=== PATIENT | male | born 1990 | race Caucasian/White ===

== ENCOUNTER 2016-12-02 17:47 | Emergency (ER) | payer OTHER ==
[~2016-12-02] VITALS: Ht 177.8 cm; Wt 101.7 kg
[~2016-12-02 17:47] MED LIST: 5-HTP100 MG PO; ADDERALL XR 3030 MG PO; ADDERALL30 MG PO; ANTIBIOTIC; ATIVAN0.5 MG PO; BACTRIM,SEPT1 TABLET PO; CARISOPRODOL 350 MG; CELEBREX200 MG PO; CIPRO500 MG PO; CLINDAMYCIN; CLONIDINE HCL0.2 MG PO; COLACE100 MG PO; CYCLOBENZAPRINE 10 M; Cipro PO; ENDOCET 5-3251 EACH PO; FLEXERIL10 MG PO; FOCALIN XR20 MG PO; FOCALIN10 MG PO; FOCALIN5 MG PO; GABAPENTIN300 MG PO; HYDROCODON-ACE1 EAC7; HYDROCODON-ACE1 EAC7 PO; IBUPROFEN800 MG PO; KEFLEX500 MG PO; KETOROLAC TROME10 MG PO; LMX 530 GM; MOBIC15 MG PO; MOTRIN600 MG PO; MOTRIN800 MG PO; MUCINEX D ER T1 EACH PO; NAPROSYN500 MG PO; NOHOMEMEDS; NORCO 5/3251 TABLET PO; NORCO 7.5/321 TABLET PO; PEPCID AC20 M1 PO; PERCOCET 2.51 TABLET PO; PERCOCET 5/31 TABLET PO; PERCOCET 5/325MG; PROMETHAZINE HC25 M1 PO; Roxicet,Percocet 5/3 PO; SOMA250 MG PO; SOMA350 MG PO; TESSALON PERLE100 MG PO; TRAMADOL HCL50 MG PO; TRETINOIN; TYLENOL REGULA325 MG PO; TYLENOL WITH C1 EACH PO; ULTRAM50 MG PO; VALIUM5 MG PO; VICODIN 5-3001 EACH PO; VICODIN,LORT1 TABLET PO; ZOFRAN ODT4 MG PO; ZOFRAN4 MG PO; ZOFRAN8 MG PO
[2016-12-02 18:25] LABS: HEMATOCRIT 37.7 % (38.0-50.0); MCHC 34.7 G/DL (30.0-36.0); MCV 89.1 FL (86-99); MEAN PLAT.VOLUME 9.7 uM^3 (9.0-12.4); PLATELET COUNT 192 K/uL (156-360); RBC DIS.WIDTH-CV 11.6 % (11.8-14.6); RBC DIS.WIDTH-SD 36.8 % (39-53); RED BLOOD COUNT 4.23 M/uL (4.00-5.50); WHITE BLOOD COUNT 5.6 K/uL (4.1-10.2)
[2016-12-02 18:44] LABS: CHLORIDE 103 mEq/L (99-109); POTASSIUM 4.2 mEq/L (3.7-5.4); SODIUM 138 mEq/L (136-147)
[2016-12-02 18:46] LABS: GLUCOSE 98 mg/dL (70-99)
[2016-12-02 18:47] LABS: ANION GAP 9 MEQ/L (2-14)
[2016-12-02 18:50] LABS: GFR ESTIMATE (CALCULATED) > 59 mL/min/
[2016-12-02 18:51] LABS: UREA NITROGEN (BUN) 9 mg/dL (9-23)
[2016-12-02 19:34] LABS: ADD MIUA? YES; BILIRUBIN NEGATIVE; BLOOD LARGE; COLOR YELLOW ((YELLOW)); GLUCOSE (STRIP) NEGATIVE; KETONES NEGATIVE; LEUKOCYTES NEGATIVE; NITRITE NEGATIVE; PH, URINE 7.5 (5-8); PROTEIN (STRIP) NEGATIVE; SPECIFIC GRAVITY 1.019 (1.000-1.030); UROBILINOGEN 0.2 MG/DL (0.2-1.0)
[2016-12-02 19:46] LABS: BACTERIA NONE SEEN; CASTS NONE SEEN /LPF; CRYSTALS NONE SEEN; EPITHELIAL CELLS RARE; MUCUS NONE SEEN; RED BLOOD CELLS 15-20 /HPF (0-5); UCUL ADDED? NO; WHITE BLOOD CELLS 0-5 /HPF (0-5)
[2016-12-02] MEDS ORDERED: ZOFRAN4 MG PO (21:21)
[2016-12-02] MEDS ORDERED: PERCOCET 5/31 TABLET PO (21:21)
[2016-12-02 21:36] VITALS: BP 137/82
== END 2016-12-02 21:43 | disposition home or self-care (01) ==
LOC: EME 17:47
DX: N20.0 Calculus of kidney (principal); R31.9 Hematuria, unspecified; Z87.442 Personal history of urinary calculi; Z88.6 Allergy status to analgesic agent
CPT/HCPCS: 74176; 80048; 81003; 85027; 99281; 99285; J1885; J2270; J2765; J7030

== ENCOUNTER 2016-12-23 16:59 | Emergency (ER) | payer OTHER ==
[~2016-12-23] VITALS: Ht 177.8 cm; Wt 98.0 kg
[2016-12-23 17:59] LABS: ADD MIUA? YES; BILIRUBIN NEGATIVE; BLOOD LARGE; COLOR YELLOW ((YELLOW)); GLUCOSE (STRIP) NEGATIVE; KETONES NEGATIVE; LEUKOCYTES NEGATIVE; NITRITE NEGATIVE; PROTEIN (STRIP) NEGATIVE; UROBILINOGEN 0.2 MG/DL (0.2-1.0)
[2016-12-23 18:01] LABS: HEMATOCRIT 34.9 % (38.0-50.0); MCH 30.7 PG (29.0-34.0); MCV 87.7 FL (86-99); PLATELET COUNT 155 K/uL (156-360); RBC DIS.WIDTH-CV 11.3 % (11.8-14.6); RBC DIS.WIDTH-SD 35.4 % (39-53); RED BLOOD COUNT 3.98 M/uL (4.00-5.50); WHITE BLOOD COUNT 3.5 K/uL (4.1-10.2)
[2016-12-23 18:04] LABS: CHLORIDE 108 mEq/L (99-109); POTASSIUM 4.1 mEq/L (3.7-5.4); SODIUM 140 mEq/L (136-147)
[2016-12-23 18:06] LABS: GLUCOSE 126 mg/dL (70-99)
[2016-12-23 18:07] LABS: ANION GAP 7 MEQ/L (2-14)
[2016-12-23 18:10] LABS: GFR ESTIMATE (CALCULATED) > 59 mL/min/
[2016-12-23 18:11] LABS: UREA NITROGEN (BUN) 7 mg/dL (9-23)
[2016-12-23 18:13] LABS: AMPHETAMINE NEGATIVE (500 ng/mL); BARBITURATES NEGATIVE (200 ng/mL); BENZODIAZEPINES NEGATIVE (150 ng/mL); COCAINE NEGATIVE (150 ng/mL); INTERNAL CONTROLS VALID? YES; METHADONE NEGATIVE (200 ng/mL); METHAMPHETAMINE NEGATIVE (500 ng/mL); OPIATES (MORPHINE) NEGATIVE (100 ng/mL); OXYCODONE NEGATIVE (100 ng/mL); PHENCYCLIDINE NEGATIVE (25 ng/mL); PROPOXYPHENE NEGATIVE (300 ng/mL); THC CANNABINOIDS NEGATIVE (50 ng/mL); TRICYCLIC ANTIDEPRESSANTS NEGATIVE (300 ng/mL)
[2016-12-23 18:26] LABS: BACTERIA 1+ /HPF; CASTS NONE SEEN /LPF; CRYSTALS NONE SEEN; EPITHELIAL CELLS NONE SEEN /HPF; MUCUS NONE SEEN /LPF; WHITE BLOOD CELLS NONE SEEN /HPF (0-5)
[2016-12-23] MEDS ORDERED: TORADOL10 MG PO (20:02)
[2016-12-23] MEDS ORDERED: VICODIN 5-3001 EACH PO (20:02)
[2016-12-23] MEDS ORDERED: FLOMAX0.4 MG PO (20:02)
[2016-12-23] MEDS ORDERED: NORCO 5/3251 TABLET PO (20:03)
[2016-12-23 20:20] VITALS: BP 118/74
== END 2016-12-23 20:20 | disposition home or self-care (01) ==
LOC: EME 16:59
PROVIDERS: Emergency Medicine
DX: N20.0 Calculus of kidney (principal); F90.9 Attention-deficit hyperactivity disorder, unspecified type; Z87.442 Personal history of urinary calculi
CPT/HCPCS: 74176; 80048; 81003; 85027; 99281; 99285; J1170; J1885; J2405; J3010; J7030

== ENCOUNTER 2017-02-15 13:07 | Emergency (ER) | payer OTHER ==
[~2017-02-15] VITALS: Ht 177.8 cm; Wt 97.5 kg
[~2017-02-15 13:07] MED LIST changes: +FLOMAX0.4 MG PO; +TORADOL10 MG PO
[2017-02-15 13:35] VITALS: BP 136/77
[2017-02-15] MEDS ORDERED: DOXYCYCLINE HY100 MG PO (15:57)
[2017-02-15] MEDS ORDERED: NORCO 5/3251 TABLET PO (16:01)
[2017-02-15] MEDS ORDERED: DOXYCYCLINE MO100 MG PO (16:21)
== END 2017-02-15 16:26 | disposition home or self-care (01) ==
LOC: EME 13:07
DX: L03.113 Cellulitis of right upper limb (principal); Z86.14 Personal history of Methicillin resistant Staphylococcus aureus infection
CPT/HCPCS: 99281; 99283

== ENCOUNTER 2017-02-28 18:28 | Emergency (ER) | payer OTHER ==
[~2017-02-28] VITALS: Ht 177.8 cm; Wt 97.0 kg
[~2017-02-28 18:28] MED LIST changes: +DOXYCYCLINE HY100 MG PO; +DOXYCYCLINE MO100 MG PO
[2017-02-28 19:14] LABS: HEMATOCRIT 37.1 % (38.0-50.0); MCH 30.3 PG (29.0-34.0); MCHC 34.5 G/DL (30.0-36.0); MCV 87.9 FL (86-99); PLATELET COUNT 170 K/uL (156-360); RBC DIS.WIDTH-CV 11.5 % (11.8-14.6); RBC DIS.WIDTH-SD 36.9 % (39-53); RED BLOOD COUNT 4.22 M/uL (4.00-5.50); WHITE BLOOD COUNT 4.7 K/uL (4.1-10.2)
[2017-02-28 19:22] LABS: CHLORIDE 109 mEq/L (99-109); POTASSIUM 3.7 mEq/L (3.7-5.4); SODIUM 141 mEq/L (136-147)
[2017-02-28 19:24] LABS: GLUCOSE 100 mg/dL (70-99)
[2017-02-28 19:25] LABS: ANION GAP 9 MEQ/L (2-14)
[2017-02-28 19:26] LABS: TOTAL BILIRUBIN 0.2 mg/dL (0.0-1.0)
[2017-02-28 19:27] LABS: ADD MIUA? YES; BILIRUBIN NEGATIVE; BLOOD LARGE; COLOR YELLOW ((YELLOW)); GLUCOSE (STRIP) NEGATIVE; KETONES NEGATIVE; LEUKOCYTES TRACE; NITRITE NEGATIVE; PROTEIN (STRIP) 30; SPECIFIC GRAVITY 1.015 (1.000-1.030); UROBILINOGEN 0.2 MG/DL (0.2-1.0)
[2017-02-28 19:28] LABS: ALKALINE PHOSPHATASE 37 IU/L (3-129); GFR ESTIMATE (CALCULATED) > 59 mL/min/
[2017-02-28 19:29] LABS: UREA NITROGEN (BUN) 21 mg/dL (9-23)
[2017-02-28 19:31] LABS: LIPASE 39 U/L (1.0-51.0)
[2017-02-28 19:56] LABS: BACTERIA 2+ /HPF; EPITHELIAL CELLS RARE /HPF; MUCUS TRACE /LPF; RED BLOOD CELLS 30-40 /HPF (0-5); WHITE BLOOD CELLS 0-5 /HPF (0-5)
[2017-02-28] MEDS ORDERED: MOTRIN800 MG PO (21:42)
[2017-02-28] MEDS ORDERED: NORCO 7.5/321 TABLET PO (21:42)
[2017-02-28] MEDS ORDERED: KEFLEX500 MG PO (21:42)
[2017-02-28] MEDS ORDERED: ZOFRAN ODT4 MG PO (21:42)
[2017-02-28] MEDS ORDERED: BACTROBAN OINTM22 GM TP (21:44)
[2017-02-28 21:57] VITALS: BP 137/83
[2017-03-02 13:07] LABS: CHLAMYDIA TRACHOMATIS NEGATIVE; NEISSERIA GONORRHOEAE NEGATIVE
== END 2017-02-28 22:00 | disposition home or self-care (01) ==
LOC: EME → EDBD 18:28 → EME 18:28
PROVIDERS: Physician Assistant
DX: N20.0 Calculus of kidney (principal); N39.0 Urinary tract infection, site not specified; Z87.442 Personal history of urinary calculi; Z88.8 Allergy status to other drugs, medicaments and biological substances; Z88.5 Allergy status to narcotic agent
CPT/HCPCS: 74176; 80053; 81003; 83690; 85027; 87086; 87491; 87591; 99281; 99285; J0696; J3010

== ENCOUNTER 2017-03-04 19:54 | Emergency (ER) | payer OTHER ==
[~2017-03-04] VITALS: Ht 177.8 cm; Wt 96.1 kg
[~2017-03-04 19:54] MED LIST changes: +BACTROBAN OINTM22 GM TP
[2017-03-04 20:40] LABS: ADD MIUA? YES; BILIRUBIN NEGATIVE; BLOOD LARGE; COLOR YELLOW ((YELLOW)); GLUCOSE (STRIP) NEGATIVE; KETONES 5; LEUKOCYTES TRACE; NITRITE NEGATIVE; PROTEIN (STRIP) 100; SPECIFIC GRAVITY 1.035 (1.000-1.030); UROBILINOGEN 0.2 MG/DL (0.2-1.0)
[2017-03-04 20:44] LABS: HEMATOCRIT 39.8 % (38.0-50.0); MCH 30.4 PG (29.0-34.0); MCHC 33.7 G/DL (30.0-36.0); MCV 90.2 FL (86-99); MEAN PLAT.VOLUME 9.6 uM^3 (9.0-12.4); PLATELET COUNT 198 K/uL (156-360); RBC DIS.WIDTH-CV 11.7 % (11.8-14.6); RED BLOOD COUNT 4.41 M/uL (4.00-5.50); WHITE BLOOD COUNT 5.3 K/uL (4.1-10.2)
[2017-03-04 20:57] LABS: CHLORIDE 107 mEq/L (99-109); SODIUM 142 mEq/L (136-147)
[2017-03-04 20:59] LABS: GLUCOSE 91 mg/dL (70-99)
[2017-03-04 21:01] LABS: ANION GAP 11 MEQ/L (2-14)
[2017-03-04 21:02] LABS: POTASSIUM 4.8 mEq/L (3.7-5.4)
[2017-03-04 21:03] LABS: GFR ESTIMATE (CALCULATED) > 59 mL/min/
[2017-03-04 21:04] LABS: UREA NITROGEN (BUN) 17 mg/dL (9-23)
[2017-03-04 21:08] LABS: BACTERIA 1+ /HPF; CASTS NONE SEEN /LPF; CRYSTALS PRESENT; EPITHELIAL CELLS RARE /HPF; MUCUS RARE /LPF; RED BLOOD CELLS 40-50 /HPF (0-5); UCUL ADDED? NO; WHITE BLOOD CELLS 0-5 /HPF (0-5)
[2017-03-04 21:09] LABS: CALCIUM OXALATE CRYSTALS 3+ /HPF
[2017-03-04] MEDS ORDERED: NORCO 5/3251 TABLET PO (22:47)
[2017-03-04 23:34] VITALS: BP 163/69
== END 2017-03-04 23:36 | disposition home or self-care (01) ==
LOC: EME 19:54
DX: N20.0 Calculus of kidney (principal); R31.9 Hematuria, unspecified; G89.29 Other chronic pain; F90.9 Attention-deficit hyperactivity disorder, unspecified type; Z87.442 Personal history of urinary calculi
CPT/HCPCS: 74000; 76770; 80048; 81003; 85027; 99281; 99284; J1885

== ENCOUNTER 2017-03-10 13:29 | Emergency (ER) | payer OTHER ==
[~2017-03-10] VITALS: Ht 177.8 cm; Wt 94.5 kg
[2017-03-10 14:19] LABS: ADD MIUA? YES; BILIRUBIN NEGATIVE; BLOOD LARGE; COLOR YELLOW ((YELLOW)); GLUCOSE (STRIP) NEGATIVE; KETONES NEGATIVE; LEUKOCYTES TRACE; NITRITE NEGATIVE; PROTEIN (STRIP) 100; SPECIFIC GRAVITY 1.026 (1.000-1.030)
[2017-03-10 14:43] LABS: BACTERIA 3+ /HPF; EPITHELIAL CELLS RARE /HPF; MUCUS 3+ /LPF; RED BLOOD CELLS TNTC /HPF (0-5); WHITE BLOOD CELLS 0-5 /HPF (0-5)
[2017-03-10 15:42] LABS: EOSINOPHIL (%) 5.9 % (0-5); EOSINOPHIL COUNT 0.3 K/uL (0-0.3); HEMATOCRIT 40.2 % (38.0-50.0); IMMATURE GRANULOCYTE (%) 0.4 % (0.0-0.7); INSTRUMENT ABS NEUTROPHIL CT 2.3 K/uL; LYMPHOCYTE COUNT 2.1 K/uL (1.0-2.8); MCH 30.2 PG (29.0-34.0); MCHC 33.6 G/DL (30.0-36.0); MCV 89.9 FL (86-99); MEAN PLAT.VOLUME 9.6 uM^3 (9.0-12.4); MONOCYTE (%) 6.3 % (3-12); MONOCYTE COUNT 0.3 K/uL (0-0.8); NEUTROPHIL (%) 45.7 % (45-76); NEUTROPHIL COUNT 2.3 K/uL (1.8-6.4); PLATELET COUNT 200 K/uL (156-360); RBC DIS.WIDTH-SD 39.9 % (39-53); RED BLOOD COUNT 4.47 M/uL (4.00-5.50); WHITE BLOOD COUNT 5.1 K/uL (4.1-10.2)
[2017-03-10 15:56] LABS: CHLORIDE 108 mEq/L (99-109); POTASSIUM 4.2 mEq/L (3.7-5.4); SODIUM 142 mEq/L (136-147)
[2017-03-10 15:58] LABS: GLUCOSE 112 mg/dL (70-99)
[2017-03-10 15:59] LABS: ANION GAP 12 MEQ/L (2-14)
[2017-03-10 16:00] LABS: TOTAL BILIRUBIN 0.2 mg/dL (0.0-1.0)
[2017-03-10 16:01] LABS: ALKALINE PHOSPHATASE 50 IU/L (3-129)
[2017-03-10 16:02] LABS: GFR ESTIMATE (CALCULATED) > 59 mL/min/
[2017-03-10 16:03] LABS: UREA NITROGEN (BUN) 18 mg/dL (9-23)
[2017-03-10] MEDS ORDERED: PERCOCET 5/31 TABLET PO (17:08)
[2017-03-10] MEDS ORDERED: MOTRIN600 MG PO (17:08)
[2017-03-10 17:30] VITALS: BP 133/83
== END 2017-03-10 17:30 | disposition home or self-care (01) ==
LOC: EME 13:29
PROVIDERS: Emergency Medicine
DX: N23 Unspecified renal colic (principal); Z87.442 Personal history of urinary calculi; Z87.440 Personal history of urinary (tract) infections; Z86.14 Personal history of Methicillin resistant Staphylococcus aureus infection; G89.29 Other chronic pain; F90.9 Attention-deficit hyperactivity disorder, unspecified type
CPT/HCPCS: 74176; 80053; 81003; 85025; 99281; 99285; J1885; J2270; J2405; J7030

== ENCOUNTER 2017-03-15 17:43 | Emergency (ER) | payer OTHER ==
[~2017-03-15] VITALS: Ht 177.8 cm; Wt 95.8 kg
[2017-03-15 19:02] LABS: ADD MIUA? YES; BILIRUBIN NEGATIVE; BLOOD MODERATE; COLOR YELLOW ((YELLOW)); GLUCOSE (STRIP) NEGATIVE; KETONES NEGATIVE; LEUKOCYTES TRACE; NITRITE NEGATIVE; PROTEIN (STRIP) NEGATIVE; SPECIFIC GRAVITY 1.017 (1.000-1.030)
[2017-03-15] MEDS ORDERED: VALTREX1000 MG PO (19:10)
[2017-03-15 19:23] VITALS: BP 150/90
[2017-03-15 19:29] LABS: BACTERIA RARE /HPF; EPITHELIAL CELLS RARE /HPF; MUCUS NONE SEEN /LPF; UCUL ADDED? NO; WHITE BLOOD CELLS 0-5 /HPF (0-5)
[2017-03-16 11:37] LABS: CHLAMYDIA TRACHOMATIS NEGATIVE; NEISSERIA GONORRHOEAE NEGATIVE
== END 2017-03-15 19:24 | disposition home or self-care (01) ==
LOC: EME 17:43
PROVIDERS: Physician Assistant
DX: A60.02 Herpesviral infection of other male genital organs (principal); R30.0 Dysuria; R31.9 Hematuria, unspecified; Z86.14 Personal history of Methicillin resistant Staphylococcus aureus infection; Z87.442 Personal history of urinary calculi; Z87.440 Personal history of urinary (tract) infections; F90.9 Attention-deficit hyperactivity disorder, unspecified type
CPT/HCPCS: 81003; 87491; 87591; 99281; 99284

== ENCOUNTER 2017-04-23 11:58 | Day surgery (SDC) | payer OTHER ==
[~2017-04-23] VITALS: Ht 177.8 cm; Wt 93.0 kg
[~2017-04-23 11:58] MED LIST changes: +5-HTP50 MG PO; +FOCALIN XR10 MG PO; +VALTREX1000 MG PO
[2017-04-27] MEDS ORDERED: SOMA350 MG PO (12:00)
[2017-04-27] MEDS ORDERED: MOTRIN800 MG PO (12:01)
== END 2017-04-23 14:55 | disposition home or self-care (01) ==
LOC: PAIN 11:58 → SDC 13:15 → PAIN 13:15
DX: M47.816 Spondylosis without myelopathy or radiculopathy, lumbar region (principal); M54.5 Low back pain; M51.26 Other intervertebral disc displacement, lumbar region; F90.1 Attention-deficit hyperactivity disorder, predominantly hyperactive type; M79.1 Myalgia; Z79.891 Long term (current) use of opiate analgesic
CPT/HCPCS: J1030; J2250; J3010; S0020

== ENCOUNTER 2017-04-30 12:28 | Day surgery (SDC) | payer OTHER ==
[~2017-04-30] VITALS: Ht 177.8 cm; Wt 96.6 kg
== END 2017-04-30 14:28 | disposition home or self-care (01) ==
LOC: PAIN 12:28 → SDC 13:15 → PAIN 14:28
PROC: 015B3ZZ Destruction of Lumbar Nerve, Percutaneous Approach (ICD-10-PCS; principal; 2017-04-30)
DX: M47.816 Spondylosis without myelopathy or radiculopathy, lumbar region (principal); F41.9 Anxiety disorder, unspecified; M51.26 Other intervertebral disc displacement, lumbar region; M79.1 Myalgia; F90.1 Attention-deficit hyperactivity disorder, predominantly hyperactive type; Z88.5 Allergy status to narcotic agent; Z88.8 Allergy status to other drugs, medicaments and biological substances
CPT/HCPCS: J1030; J1885; J2250; J3010; S0020

== ENCOUNTER 2017-06-11 13:53 | Emergency (ER) | payer OTHER ==
[~2017-06-11] VITALS: Ht 177.8 cm; Wt 96.6 kg
[2017-06-11 15:36] LABS: ADD MIUA? YES; BILIRUBIN NEGATIVE; BLOOD LARGE; COLOR YELLOW ((YELLOW)); GLUCOSE (STRIP) NEGATIVE; KETONES NEGATIVE; LEUKOCYTES NEGATIVE; NITRITE NEGATIVE; PROTEIN (STRIP) 30; SPECIFIC GRAVITY 1.021 (1.000-1.030); UROBILINOGEN 0.2 MG/DL (0.2-1.0)
[2017-06-11 15:40] LABS: BACTERIA 2+ /HPF; EPITHELIAL CELLS RARE /HPF; MUCUS TRACE /LPF; RED BLOOD CELLS TNTC /HPF (0-5); WHITE BLOOD CELLS 0-5 /HPF (0-5)
[2017-06-11 15:47] LABS: CHLORIDE 105 mEq/L (99-109); POTASSIUM 4.2 mEq/L (3.7-5.4); SODIUM 140 mEq/L (136-147)
[2017-06-11 15:49] LABS: GLUCOSE 90 mg/dL (70-99)
[2017-06-11 15:50] LABS: ANION GAP 14 MEQ/L (2-14)
[2017-06-11 15:53] LABS: GFR ESTIMATE (CALCULATED) > 59 mL/min/
[2017-06-11 15:54] LABS: UREA NITROGEN (BUN) 17 mg/dL (9-23)
[2017-06-11] MEDS ORDERED: ZOFRAN ODT8 MG PO (17:52)
[2017-06-11] MEDS ORDERED: NORCO 5/3251 TABLET PO (17:52)
[2017-06-11 18:10] VITALS: BP 148/96
== END 2017-06-11 18:14 | disposition home or self-care (01) ==
LOC: EME 13:53
PROVIDERS: Physician Assistant
DX: N20.0 Calculus of kidney (principal); Z87.442 Personal history of urinary calculi; Z88.6 Allergy status to analgesic agent
CPT/HCPCS: 74000; 76770; 80048; 81003; 99281; 99285; J1885; J2270; J2405; J7030

== ENCOUNTER 2017-10-15 09:40 | Emergency (ER) | payer OTHER ==
[~2017-10-15] VITALS: Ht 177.8 cm; Wt 101.5 kg
[~2017-10-15 09:40] MED LIST changes: +ZOFRAN ODT8 MG PO
[2017-10-15 10:32] LABS: EOSINOPHIL (%) 1.1 % (0-5); EOSINOPHIL COUNT 0.1 K/uL (0-0.3); HEMATOCRIT 42.9 % (38.0-50.0); IMMATURE GRANULOCYTE (%) 0.5 % (0.0-0.7); INSTRUMENT ABS NEUTROPHIL CT 3.5 K/uL; LYMPHOCYTE COUNT 2.2 K/uL (1.0-2.8); MCH 30.6 PG (29.0-34.0); MCHC 34.3 G/DL (30.0-36.0); MCV 89.2 FL (86-99); MEAN PLAT.VOLUME 9.6 uM^3 (9.0-12.4); MONOCYTE (%) 7.7 % (3-12); MONOCYTE COUNT 0.5 K/uL (0-0.8); NEUTROPHIL (%) 55.8 % (45-76); NEUTROPHIL COUNT 3.5 K/uL (1.8-6.4); PLATELET COUNT 178 K/uL (156-360); RBC DIS.WIDTH-CV 11.6 % (11.8-14.6); RBC DIS.WIDTH-SD 37.4 % (39-53); RED BLOOD COUNT 4.81 M/uL (4.00-5.50); WHITE BLOOD COUNT 6.3 K/uL (4.1-10.2)
[2017-10-15 10:39] LABS: ADD MIUA? YES; BILIRUBIN NEGATIVE; BLOOD LARGE; COLOR YELLOW ((YELLOW)); GLUCOSE (STRIP) NEGATIVE; KETONES NEGATIVE; LEUKOCYTES TRACE; NITRITE NEGATIVE; PROTEIN (STRIP) 100; SPECIFIC GRAVITY 1.024 (1.000-1.030); UROBILINOGEN 0.2 MG/DL (0.2-1.0)
[2017-10-15 10:42] LABS: CHLORIDE 105 mEq/L (99-109); POTASSIUM 4.1 mEq/L (3.7-5.4); SODIUM 138 mEq/L (136-147)
[2017-10-15 10:43] LABS: GLUCOSE 89 mg/dL (70-99)
[2017-10-15 10:45] LABS: ANION GAP 10 MEQ/L (2-14)
[2017-10-15 10:46] LABS: BACTERIA 3+ /HPF; CALCIUM OXALATE CRYSTALS 1+ /HPF; EPITHELIAL CELLS RARE /HPF; MUCUS 2+ /LPF; RED BLOOD CELLS TNTC /HPF (0-5); WHITE BLOOD CELLS 0-5 /HPF (0-5)
[2017-10-15 10:47] LABS: GFR ESTIMATE (CALCULATED) > 59 mL/min/
[2017-10-15 10:48] LABS: UREA NITROGEN (BUN) 13 mg/dL (9-23)
[2017-10-15] MEDS ORDERED: TORADOL10 MG PO (13:31)
[2017-10-15 14:01] VITALS: BP 139/91
== END 2017-10-15 14:08 | disposition home or self-care (01) ==
LOC: EME → EDBD 09:40 → EME 14:08
PROVIDERS: Emergency Medicine
DX: N20.0 Calculus of kidney (principal); R11.2 Nausea with vomiting, unspecified; R30.0 Dysuria; Z87.442 Personal history of urinary calculi
CPT/HCPCS: 74176; 80048; 81003; 85025; 99281; 99285; J1885; J2270; J2405

== ENCOUNTER 2017-10-17 00:47 | Emergency (ER) | payer OTHER ==
[~2017-10-17] VITALS: Ht 177.8 cm; Wt 99.7 kg
[2017-10-17 01:43] LABS: HEMATOCRIT 39.7 % (38.0-50.0); MCH 30.9 PG (29.0-34.0); MCHC 34.5 G/DL (30.0-36.0); MCV 89.6 FL (86-99); MEAN PLAT.VOLUME 9.8 uM^3 (9.0-12.4); PLATELET COUNT 171 K/uL (156-360); RBC DIS.WIDTH-CV 11.5 % (11.8-14.6); RBC DIS.WIDTH-SD 37.4 % (39-53); RED BLOOD COUNT 4.43 M/uL (4.00-5.50); WHITE BLOOD COUNT 5.3 K/uL (4.1-10.2)
[2017-10-17 01:58] LABS: CHLORIDE 108 mEq/L (99-109); SODIUM 139 mEq/L (136-147)
[2017-10-17 02:00] LABS: GLUCOSE 102 mg/dL (70-99)
[2017-10-17 02:01] LABS: ANION GAP 10 MEQ/L (2-14)
[2017-10-17 02:04] LABS: GFR ESTIMATE (CALCULATED) > 59 mL/min/
[2017-10-17 02:05] LABS: UREA NITROGEN (BUN) 15 mg/dL (9-23)
[2017-10-17 03:30] LABS: ADD MIUA? YES; BILIRUBIN NEGATIVE; BLOOD LARGE; COLOR YELLOW ((YELLOW)); GLUCOSE (STRIP) NEGATIVE; KETONES NEGATIVE; LEUKOCYTES SMALL; NITRITE NEGATIVE; PROTEIN (STRIP) 30; SPECIFIC GRAVITY 1.015 (1.000-1.030); UROBILINOGEN 0.2 MG/DL (0.2-1.0)
[2017-10-17 03:54] LABS: BACTERIA 3+ /HPF; EPITHELIAL CELLS RARE /HPF; MUCUS 1+ /LPF; RED BLOOD CELLS TNTC /HPF (0-5); UCUL ADDED? YES; WHITE BLOOD CELLS 0-5 /HPF (0-5)
[2017-10-17] MEDS ORDERED: CIPRO500 MG PO (04:19)
[2017-10-17] MEDS ORDERED: PERCOCET 5/31 TABLET PO (04:28)
[2017-10-17] MEDS ORDERED: ZOFRAN4 MG PO (04:28)
[2017-10-17] MEDS ORDERED: UROXATRAL10 MG PO (04:41)
[2017-10-17 05:58] VITALS: BP 124/86
== END 2017-10-17 05:59 | disposition home or self-care (01) ==
LOC: EME → EDBD 00:47 → EME 05:59
PROVIDERS: Emergency Medicine
DX: N39.0 Urinary tract infection, site not specified (principal); N20.1 Calculus of ureter; F90.9 Attention-deficit hyperactivity disorder, unspecified type; Z87.442 Personal history of urinary calculi; Z88.5 Allergy status to narcotic agent
CPT/HCPCS: 80048; 81003; 85027; 87086; J0744; J1885; J2270; J2405; J3010; J7030

== ENCOUNTER 2017-11-18 13:33 | Emergency (ER) | payer OTHER ==
[~2017-11-18] VITALS: Ht 177.8 cm; Wt 101.7 kg
[~2017-11-18 13:33] MED LIST changes: +UROXATRAL10 MG PO
[2017-11-18 14:10] VITALS: BP 139/87
[2017-11-18] MEDS ORDERED: VENTOLIN HFA18 GM IH (17:46)
[2017-11-18] MEDS ORDERED: XYLOCAINE VISC100 ML PO (17:49)
== END 2017-11-18 18:00 | disposition home or self-care (01) ==
LOC: EME 13:33
DX: B34.9 Viral infection, unspecified (principal); Z88.5 Allergy status to narcotic agent; Z87.442 Personal history of urinary calculi
CPT/HCPCS: 87651 90; 94640; 99281; 99284

== ENCOUNTER 2017-11-21 08:35 | Emergency (ER) | payer OTHER ==
[~2017-11-21] VITALS: Ht 177.8 cm; Wt 98.2 kg
[~2017-11-21 08:35] MED LIST changes: +VENTOLIN HFA18 GM IH; +XYLOCAINE VISC100 ML PO
[2017-11-21 11:18] VITALS: BP 167/151
== END 2017-11-21 11:19 | disposition home or self-care (01) ==
LOC: EME 08:35
DX: J06.9 Acute upper respiratory infection, unspecified (principal); F90.9 Attention-deficit hyperactivity disorder, unspecified type; Z87.442 Personal history of urinary calculi; Z88.5 Allergy status to narcotic agent
CPT/HCPCS: 99281; 99283

== ENCOUNTER 2017-12-17 11:00 | Emergency (ER) | payer OTHER ==
[~2017-12-17] VITALS: Ht 177.8 cm; Wt 100.2 kg
[2017-12-17 11:35] LABS: HEMATOCRIT 43.6 % (38.0-50.0); HEMOGLOBIN 15.1 G/DL (12.5-16.6); MCHC 34.6 G/DL (30.0-36.0); MCV 89.5 FL (86-99); PLATELET COUNT 151 K/uL (156-360); RBC DIS.WIDTH-CV 11.6 % (11.8-14.6); RBC DIS.WIDTH-SD 37.8 % (39-53); RED BLOOD COUNT 4.87 M/uL (4.00-5.50)
[2017-12-17 11:47] LABS: CHLORIDE 107 mEq/L (99-109); POTASSIUM 4.2 mEq/L (3.7-5.4); SODIUM 140 mEq/L (136-147)
[2017-12-17 11:49] LABS: GLUCOSE 87 mg/dL (70-99)
[2017-12-17 11:53] LABS: CREATININE 0.9 mg/dL (0.6-1.3); GFR ESTIMATE (CALCULATED) > 59 mL/min/ (58.99-99999); UREA NITROGEN (BUN) 17 mg/dL (9-23)
[2017-12-17] MEDS ORDERED: VENTOLIN HFA18 GM IH (14:11)
[2017-12-17] MEDS ORDERED: TESSALON PERLE100 MG PO (14:11)
[2017-12-17] MEDS ORDERED: PREDNISONE50 MG PO (14:11)
[2017-12-17] MEDS ORDERED: TUSSIONEX PENN473 ML PO (14:11)
[2017-12-17 15:00] VITALS: BP 181/80
== END 2017-12-17 15:01 | disposition home or self-care (01) ==
LOC: EME 11:00
DX: J20.9 Acute bronchitis, unspecified (principal); F90.9 Attention-deficit hyperactivity disorder, unspecified type; Z87.442 Personal history of urinary calculi; Z90.49 Acquired absence of other specified parts of digestive tract; Z88.5 Allergy status to narcotic agent
CPT/HCPCS: 71046; 80048; 85027; 94640; 99281; 99283

== ENCOUNTER 2018-02-25 09:50 | Day surgery (SDC) | payer OTHER ==
[~2018-02-25] VITALS: Ht 177.8 cm; Wt 96.6 kg
[~2018-02-25 09:50] MED LIST changes: +PREDNISONE50 MG PO; +TUSSIONEX PENN473 ML PO
[2018-02-25] MEDS ORDERED: PROZAC20 MG PO (10:11)
[2018-02-25] MEDS ORDERED: FOCALIN10 MG PO (10:13)
[2018-02-25] MEDS ORDERED: FIORICET 50-301 EAC1 PO (10:15)
[2018-02-25] MEDS ORDERED: TOPIRAMATE25 MG PO (10:16)
== END 2018-02-25 11:35 | disposition home or self-care (01) ==
LOC: PAIN 09:50 → SDC 10:30 → PAIN 10:30
DX: M47.816 Spondylosis without myelopathy or radiculopathy, lumbar region (principal); M51.26 Other intervertebral disc displacement, lumbar region; M79.1 Myalgia; Z88.5 Allergy status to narcotic agent
CPT/HCPCS: J1030; J1885; J2250; S0020

== ENCOUNTER 2018-03-11 09:46 | Day surgery (SDC) | payer OTHER ==
[~2018-03-11] VITALS: Ht 177.8 cm; Wt 98.0 kg
[~2018-03-11 09:46] MED LIST changes: +FIORICET 50-301 EAC1 PO; +PROZAC20 MG PO; +TOPIRAMATE25 MG PO
== END 2018-03-11 11:10 | disposition home or self-care (01) ==
LOC: PAIN 09:46 → SDC 10:30 → PAIN 11:10
DX: M47.816 Spondylosis without myelopathy or radiculopathy, lumbar region (principal); M51.26 Other intervertebral disc displacement, lumbar region; M54.5 Low back pain; M79.1 Myalgia; Z88.5 Allergy status to narcotic agent
CPT/HCPCS: J1030; J2250; S0020

== ENCOUNTER 2018-03-25 08:48 | Emergency (ER) | payer OTHER ==
[~2018-03-25] VITALS: Ht 177.8 cm; Wt 99.5 kg
[2018-03-25 09:13] LABS: APPEARANCE SL.HAZY ((CLEAR)); BILIRUBIN NEGATIVE; BLOOD MODERATE; COLOR YELLOW ((YELLOW)); GLUCOSE (STRIP) NEGATIVE; KETONES NEGATIVE; LEUKOCYTES NEGATIVE; NITRITE NEGATIVE; PROTEIN (STRIP) 30; UROBILINOGEN 0.2 MG/DL (0.2-1.0)
[2018-03-25 09:15] LABS: BASOPHIL (%) 0.6 % (0-1); BASOPHIL COUNT 0.1 K/uL (0-0.1); EOSINOPHIL (%) 0.9 % (0-5); EOSINOPHIL COUNT 0.1 K/uL (0-0.3); HEMATOCRIT 43.1 % (38.0-50.0); IMMATURE GRANULOCYTE (%) 0.3 % (0.0-0.7); LYMPHOCYTE (%) 22.5 % (15-42); LYMPHOCYTE COUNT 1.7 K/uL (1.0-2.8); MCH 31.1 PG (29.0-34.0); MCHC 34.8 G/DL (30.0-36.0); MCV 89.2 FL (86-99); MONOCYTE (%) 5.4 % (3-12); MONOCYTE COUNT 0.4 K/uL (0-0.8); NEUTROPHIL (%) 70.3 % (45-76); NEUTROPHIL COUNT 5.4 K/uL (1.8-6.4); PLATELET COUNT 213 K/uL (156-360); RBC DIS.WIDTH-CV 11.9 % (11.8-14.6); RBC DIS.WIDTH-SD 38.5 % (39-53); RED BLOOD COUNT 4.83 M/uL (4.00-5.50); WHITE BLOOD COUNT 7.7 K/uL (4.1-10.2)
[2018-03-25 09:25] LABS: BACTERIA 1+ /HPF; EPITHELIAL CELLS RARE /HPF; MUCUS TRACE /LPF; RED BLOOD CELLS TNTC /HPF (0-5); WHITE BLOOD CELLS 0-5 /HPF (0-5)
[2018-03-25 09:55] LABS: CHLORIDE 101 MEQ/L (99-109); GFR ESTIMATE (CALCULATED) > 59 mL/min/ (58.99-99999); GLUCOSE 107 mg/dL (70-99); POTASSIUM 4.3 MEQ/L (3.7-5.4); SODIUM 136 MEQ/L (136-147); UREA NITROGEN (BUN) 16 mg/dL (9-23)
[2018-03-25] MEDS ORDERED: FLOMAX0.4 MG PO (12:18)
[2018-03-25] MEDS ORDERED: PERCOCET 5/31 TABLET PO (12:18)
[2018-03-25] MEDS ORDERED: ZOFRAN4 MG PO (12:18)
[2018-03-25 12:57] VITALS: BP 135/88
== END 2018-03-25 12:58 | disposition home or self-care (01) ==
LOC: EME 08:48
PROVIDERS: Emergency Medicine
DX: R10.9 Unspecified abdominal pain (principal); Z87.442 Personal history of urinary calculi; F32.9 Major depressive disorder, single episode, unspecified; F41.9 Anxiety disorder, unspecified; F90.9 Attention-deficit hyperactivity disorder, unspecified type; Z88.5 Allergy status to narcotic agent
CPT/HCPCS: 74176; 80048; 81003; 85025; 99281; 99284; J1885; J2405; J3010; J7030